=== PATIENT | female | born 1990 | race American Indian/Alaskan Native ===

== ENCOUNTER 2021-01-17 14:41 | Inpatient (IN) | payer BC, OTHER ==
--- NOTE | 2021-01-17 14:53 | Emergency Department Report ---
HPI - General Time Seen by Provider: 01/17/21 14:44 - HPI HPI: 30-year-old female with history of asthma with 1 prior intubation in the past presents via EMS for acute asthma exacerbation. According to the EMS report, the patient was at [facility] when she suddenly began to feel short of breath. Her shortness of breath progressed despite using her albuterol inhaler. When EMS arrived, the patient was noted to be in respiratory distress. In route to the hospital she was given 7.5 of albuterol 125 mg of Solu-Medrol and 2 g of magnesium. The patient was noted to be tachycardic. Details of the HPI are limited due to the patient's current clinical condition, although she did verify to me that prior to feeling short of breath at [facility] today she did not experience any fever/chills, cough, chest pain, shortness of breath, abdominal pain, nausea/vomiting, or any other symptoms. She does say that after her shortness of breath started she began to experience tightness in her chest. ED Past Medical Hx - Past Medical History Hx Asthma: Yes - Family History Family history: asthma - Social History Smoking Status: Never Smoker Substance Use Type: None - Medications Home Medications: Home Medications Medication Instructions Recorded Confirmed Last Taken Type Desloratadine [Clarinex] 5 mg PO DAILY #14 tablet 05/26/13 Unknown Rx Sulfamethoxazole/Trimethoprim 1 each PO BID #20 tablet 05/26/13 Unknown Rx [Bactrim DS] Albuterol *Only Ed* [Proventil 2.5 mg IH Q4H PRN #1 pack 04/27/15 Unknown Rx 0.5% NEBS] Albuterol Mdi (or & Nicu Only) 2 puff IH Q6H PRN #1 unit 04/27/15 Unknown Rx [ProAir HFA Inhaler] Montelukast [Singulair] 10 mg PO QPM #14 tablet 04/27/15 Unknown Rx predniSONE [Deltasone] 50 mg PO QDAY #5 tab 04/27/15 Unknown Rx ED Review of Systems ROS: Stated complaint: ASTHMA ATTACK/CHEST PAIN Other details as noted in HPI Constitutional: denies: chills, fever Eyes: denies: vision change ENT: denies: throat pain, congestion Respiratory: shortness of breath, wheezing. denies: cough Cardiovascular: chest pain. denies: palpitations Gastrointestinal: denies: abdominal pain, nausea, vomiting Genitourinary: denies: dysuria Musculoskeletal: denies: myalgia Neurological: denies: headache, weakness, numbness Physical Exam - Physical Exam Vital Signs: Vital Signs 01/17/21 01/17/21 01/17/21 14:58 15:40 15:48 Pulse Rate 113 H 100 H Respiratory 60 H 30 H 30 H Rate Blood Pressure 134/56 Blood Pressure 108/57 [Left] O2 Sat by Pulse 100 100 100 Oximetry General: GENERAL: In moderate to severe respiratory distress HEENT: Normocephalic. No obvious signs of trauma. Moist mucous membranes. EYES: Extraocular movements are intact. NECK: Supple. Trachea is midline. LUNGS: In respiratory distress with intercostal and other accessory muscle use. Lung auscultation reveals globally diminished breath sounds with faint end expiratory wheezing throughout. No crackles or rhonchi appreciated. HEART/CARDIOVASCULAR: Tachycardic but with normal rhythm. No murmurs or rubs. VASCULAR: 2+ peripheral pulses. ABDOMEN: Abdomen is soft and nondistended.There is no significant tenderness, guarding or rebound. SKIN: Skin is warm and dry NEURO: Patient is awake and alert. No focal deficits. MUSCULOSKELETAL: No obvious deformities. No significant tenderness. ED Medical Decision Making - Lab Data Result diagrams: 01/17/21 15:05 01/17/21 15:05 Laboratory Results - last 24 hr 01/17/21 01/17/21 01/17/21 15:05 15:05 15:05 WBC 7.1 RBC 3.92 Hgb 12.1 Hct 36.3 MCV 93 MCH 31 MCHC 33 RDW 13.6 Plt Count 183 Lymph % (Auto) 35.7 H [place] % (Auto) 5.7 Eos % (Auto) 1.3 Baso % (Auto) 0.2 Lymph # (Auto) 2.5 [place] # (Auto) 0.4 Eos # (Auto) 0.1 Baso # (Auto) 0.0 Seg Neutrophils % 57.1 Seg Neutrophils # 4.0 Sodium 137 Potassium 3.2 L Chloride 104.1 Carbon Dioxide 18 L Anion Gap 18 BUN 11 Creatinine 0.7 Estimated GFR > 60 BUN/Creatinine Ratio 16 Glucose 105 H Calcium 8.3 L Magnesium 2.50 H Total Bilirubin 0.30 Direct Bilirubin < 0.2 Indirect Bilirubin 0.1 AST 13 ALT 10 Alkaline Phosphatase 66 Troponin T < 0.010 NT-Pro-B Natriuret Pep 29.92 Total Protein 7.1 Albumin 4.1 Albumin/Globulin Ratio 1.4 HCG, Qual Negative - EKG Data -: EKG Interpreted by Me - EKG Data Normal sinus rhythm. Normal axis. Normal intervals. No ectopy. No sig nificant ST segment or T wave abnormalities 01/17/21 17:44 - Radiology Data CHEST 1 VIEW INDICATION: sob. COMPARISON: None. FINDINGS: Support devices: None. Heart: Normal. Lungs/Pleura: No acute pulmonary or pleural findings. IMPRESSION: 1. No acute findings. Signer Name: Cosmo Myles MD Signed: 01/17/2021 3:07 PM Workstation Name: [id number] - Medical Decision Making 30-year-old female with history of asthma with a history of one single intubation brought in by EMS for sudden respiratory distress typical of the patient's acute asthma exacerbations. The patient was at [facility] when she suddenly began to feel short of breath. She was in respiratory distress when EMS arrived and displayed diffuse wheezing. She was given 7.5 mg of albuterol, 125 mg of Solu-Medrol, and 2 g of magnesium in route. On initial assessment the patient is noted to be in respiratory distress with intercostal and accessory muscle use. Lung auscultation reveals globally decreased air movement throughout with faint end expiratory wheezing most consistent with acute asthma exacerbation. Given the severity of the patient's disease and her current presentation, we will send a full set of labs, EKG, and chest x-ray. The patient will be placed on BiPAP with continuous albuterol/ipratropium. We will give 1 additional gram of magnesium. We will obtain an ABG and continue to monitor her response to therapy closely and consider further interventions if needed On repeat assessment 3:45 PM, the patient 's respiratory rate is improved to the 20s. She reports that she feels much better. On repeat assessment again at 4:15, she remains symptomatically improved on BiPAP. ABG reveals appropriatre oxygenation and no evidence of hypercarbia., Labs reveal no leukocytosis. Potassium level is 3.2. Will administer 40 mEq potassiuym chloride. CXR is clear. Will admit to ICU for further management. Critical Care Time: Yes (35) Critical care time in (mins) excluding proc time.: 35 Critical care attestation.: If time is entered above; I have spent that time in minutes in the direct care of this critically ill patient, excluding procedure time. Critical care time was spent in the evaluation/assessment/management of life threatening respiratory failure requiring BiPAP and monitoring of ABGs ED Disposition Clinical Impression: Hypokalemia Asthma exacerbation Qualifiers: Asthma severity: severe Asthma persistence: unspecified Qualified Code(s): J45.901 - Unspecified asthma with (acute) exacerbation Respiratory failure with hypoxia Qualifiers: Chronicity: acute Qualified Code(s): J96.01 - Acute respiratory failure with hypoxia Disposition: DC-09 OP ADMIT IP TO THIS HOSP Is pt being admited?: Yes Condition: Critical
[2021-01-17] MEDS ORDERED: IPRATROPIUM 0.02% NEBU 2.5 ML IH ONE ×2 (14:55→14:56)
[2021-01-17] MEDS ORDERED: ALBUTEROL 2.5 MG/3 ML NEBU IH ONE ×2 (14:55→14:56)
[2021-01-17] MEDS ORDERED: MAGNESIUM SULFATE 1 GM in SODIUM CHLORIDE 0.9% 50 ML IV ONE (15:00)
[2021-01-17] MEDS ORDERED: MAGNESIUM SULFATE 2 GM/50 ML BAG IV ONE (15:10)
[2021-01-17 15:30] LABS: Basophils % (Auto) 0.2 % (0.0-1.8); Eosinophils # (Auto) 0.1 K/mm3 (0.0-0.4); Eosinophils % (Auto) 1.3 % (0.0-4.3); Hematocrit 36.3 % (30.3-42.9); Hemoglobin 12.1 gm/dl (10.1-14.3); Lymphocytes # (Auto) 2.5 K/mm3 (1.2-5.4); Lymphocytes % (Auto) 35.7 % (13.4-35.0); Mean Corpuscular HGB Conc 33 % (30-34); Mean Corpuscular Volume 93 fl (79-97); Monocytes # (Auto) 0.4 K/mm3 (0.0-0.8); Monocytes % (Auto) 5.7 % (0.0-7.3); Platelet Count 183 K/mm3 (140-440); Red Blood Count 3.92 M/mm3 (3.65-5.03); Red Cell Distribution Width 13.6 % (13.2-15.2)
[2021-01-17 15:47] LABS: Alanine Aminotransferase 10 units/L (7-56); Albumin 4.1 g/dL (3.9-5); Blood Urea Nitrogen 11 mg/dL (7-17); Calcium 8.3 mg/dL (8.4-10.2); Hemolysis Index 6
[2021-01-17 16:03] LABS: BUN/Creatinine Ratio 16; Bilirubin,Direct < 0.2 mg/dL (0-0.2)
--- NOTE | 2021-01-17 16:11 | XRay Report ---
CHEST 1 VIEW INDICATION: sob. COMPARISON: None. FINDINGS: Support devices: None. Heart: Normal. Lungs/Pleura: No acute pulmonary or pleural findings. IMPRESSION: 1. No acute findings. Signer Name: Cosmo Myles MD Signed: 01/17/2021 4:07 PM Workstation Name: [id number]
[2021-01-17] MEDS ORDERED: POTASSIUM CHLORIDE ER 20 MEQ TAB PO ONE ×3 (16:15→22:35)
--- NOTE | 2021-01-17 21:43 | History and Physical Report ---
History of Present Illness Date of examination: 01/17/21 Date of admission: 01/17/21 21:19 Chief complaint: Severe shortness of breath since morning while at [employer] associated with wheezing History of present illness: 30-year-old female with history of asthma and 1 prior intubation comes in for severe shortness of breath since morning. Patient called EMS and came by EMS. Patient was [place] [employer] when she suddenly began to feel shortness of breath and wheezing. In spite of using the albuterol inhaler there is no relief. Patient is not on Singulair for prevention of asthma. Patient was intubated once in the past. No fever or chills. No exposure to Covid. No anosmia or loss of taste. Cough present. Mucoid sputum present. Also tightness in the chest. - Past Medical History --Asthma: Yes - Past surgical history none - Family History Family history: asthma - Social History Smoking Status: Never Smoker Substance Use Type: None Review of Systems ROS: Constitutional severe respiratory distress HEENT no sore throat no post nasal drip no diplopia Neck no neck stiffness no lymph gland enlargement Chest and lungs severe respiratory distress and wheezing CVS no chest pain no diaphoresis no palpitations GI no nausea no vomiting no diarrhea Genitourinary system no dysuria no flank pain Musculoskeletal system no muscle pains no joint pains [employer] no syncope no seizures Skin no rash no itching Psychiatric no depression no homicidal or suicidal tendencies Hematologic no lymphedema or bruising Endocrine no polydipsia no polyuria no cold intolerance no heat intolerance Medications and Allergies Allergies Allergy/AdvReac Type Severity Reaction Status Date / Time No Known Allergies Allergy Verified 04/27/15 06:36 Home Medications Medication Instructions Recorded Confirmed Last Taken Type Desloratadine [Clarinex] 5 mg PO DAILY #14 tablet 05/26/13 Unknown Rx Sulfamethoxazole/Trimethoprim 1 each PO BID #20 tablet 05/26/13 Unknown Rx [Bactrim DS] Albuterol *Only Ed* [Proventil 2.5 mg IH Q4H PRN #1 pack 04/27/15 Unknown Rx 0.5% NEBS] Albuterol Mdi (or & Nicu Only) 2 puff IH Q6H PRN #1 unit 04/27/15 Unknown Rx [ProAir HFA Inhaler] Montelukast [Singulair] 10 mg PO QPM #14 tablet 04/27/15 Unknown Rx predniSONE [Deltasone] 50 mg PO QDAY #5 tab 04/27/15 Unknown Rx Exam - Physical Exam Narrative exam: Patient on BiPAP - Constitutional Vitals: Temp Pulse Resp BP Pulse Ox 87 60 H 124/59 99 01/17/21 21:15 01/17/21 19:52 01/17/21 21:15 01/17/21 21:15 General appearance: Present: severe distress, well-nourished - EENT Eyes: Present: PERRL ENT: hearing intact, clear oral mucosa - Neck Neck: Present: supple, normal ROM - Respiratory Respiratory effort: normal Respiratory: bilateral: diminished, rhonchi, wheezing - Cardiovascular Heart rate: 78 Rhythm: regular Heart Sounds: Present: S1 & S2. Absent: rub, click - Extremities Extremities: no ischemia, pulses intact, pulses symmetrical, No edema Peripheral Pulses: within normal limits - Abdominal General gastrointestinal: Present: soft, non-tender, non-distended, normal bowel sounds Female genitourinary: Present: normal - Integumentary Integumentary: Present: clear, warm, dry - Musculoskeletal Musculoskeletal: gait normal, strength equal bilaterally - Psychiatric Psychiatric: appropriate mood/affect, intact judgment & insight - Neurologic Neurologic: CNII-XII intact, moves all extremities - Allied Health Allied health notes reviewed: nursing, case management HEART Score - HEART Score Troponin: Troponin T < 0.010 ng/mL (0.00-0.029) 01/17/21 15:05 Results - Labs CBC & Chem 7: 01/17/21 15:05 01/17/21 15:05 Labs: Laboratory Last Values WBC 7.1 K/mm3 (4.5-11.0) 01/17/21 15:05 RBC 3.92 M/mm3 (3.65-5.03) 01/17/21 15:05 Hgb 12.1 gm/dl (10.1-14.3) 01/17/21 15:05 Hct 36.3 % (30.3-42.9) 01/17/21 15:05 MCV 93 fl (79-97) 01/17/21 15:05 MCH 31 pg (28-32) 01/17/21 15:05 MCHC 33 % (30-34) 01/17/21 15:05 RDW 13.6 % (13.2-15.2) 01/17/21 15:05 Plt Count 183 K/mm3 (140-440) 01/17/21 15:05 Lymph % (Auto) 35.7 % (13.4-35.0) H 01/17/21 15:05 [place] % (Auto) 5.7 % (0.0-7.3) 01/17/21 15:05 Eos % (Auto) 1.3 % (0.0-4.3) 01/17/21 15:05 Baso % (Auto) 0.2 % (0.0-1.8) 01/17/21 15:05 Lymph # (Auto) 2.5 K/mm3 (1.2-5.4) 01/17/21 15:05 [place] # (Auto) 0.4 K/mm3 (0.0-0.8) 01/17/21 15:05 Eos # (Auto) 0.1 K/mm3 (0.0-0.4) 01/17/21 15:05 Baso # (Auto) 0.0 K/mm3 (0.0-0.1) 01/17/21 15:05 Seg Neutrophils % 57.1 % (40.0-70.0) 01/17/21 15:05 Seg Neutrophils # 4.0 K/mm3 (1.8-7.7) 01/17/21 15:05 ABG pH 7.399 (7.320-7.450) 01/17/21 15:56 POC ABG pCO2 27.2 mmHg (32.0-48.0) L 01/17/21 15:56 POC ABG pO2 124.6 mmHg (83-108) H 01/17/21 15:56 POC ABG HCO3 16.4 01/17/21 15:56 ABG O2 Saturation 98.2 (0-100) 01/17/21 15:56 POC ABG Base Excess -7.0 01/17/21 15:56 ABG Hemoglobin 12.0 (12.0-17.5) 01/17/21 15:56 ABG Oxyhemoglobin 97.8 (94-98) 01/17/21 15:56 ABG Methemoglobin 0.3 (0.0-1.5) 01/17/21 15:56 ABG Sodium 137.4 mmol/L (136.0-145.0) 01/17/21 15:56 ABG Potassium 3.2 mmol/L (3.40-4.50) L 01/17/21 15:56 ABG Chloride 108.0 mmol/L (98-107) H 01/17/21 15:56 ABG Glucose 114 mg/dL (65-95) H 01/17/21 15:56 Carboxyhemoglobin 0.1 (0.5-1.5) L 01/17/21 15:56 FiO2 % 30 01/17/21 15:56 Sodium 137 mmol/L (137-145) 01/17/21 15:05 Potassium 3.2 mmol/L (3.6-5.0) L 01/17/21 15:05 Chloride 104.1 mmol/L (98-107) 01/17/21 15:05 Carbon Dioxide 18 mmol/L (22-30) L 01/17/21 15:05 Anion Gap 18 mmol/L 01/17/21 15:05 BUN 11 mg/dL (7-17) 01/17/21 15:05 Creatinine 0.7 mg/dL (0.6-1.2) 01/17/21 15:05 Estimated GFR > 60 ml/min 01/17/21 15:05 BUN/Creatinine Ratio 16 % 01/17/21 15:05 Glucose 105 mg/dL (65-100) H 01/17/21 15:05 Calcium 8.3 mg/dL (8.4-10.2) L 01/17/21 15:05 Magnesium 2.50 mg/dL (1.7-2.3) H 01/17/21 15:05 Total Bilirubin 0.30 mg/dL (0.1-1.2) 01/17/21 15:05 Direct Bilirubin < 0.2 mg/dL (0-0.2) 01/17/21 15:05 Indirect Bilirubin 0.1 mg/dL 01/17/21 15:05 AST 13 units/L (5-40) 01/17/21 15:05 ALT 10 units/L (7-56) 01/17/21 15:05 Alkaline Phosphatase 66 units/L (35-129) 01/17/21 15:05 Troponin T < 0.010 ng/mL (0.00-0.029) 01/17/21 15:05 NT-Pro-B Natriuret Pep 29.92 pg/mL (0-450) 01/17/21 15:05 Total Protein 7.1 g/dL (6.3-8.2) 01/17/21 15:05 Albumin 4.1 g/dL (3.9-5) 01/17/21 15:05 Albumin/Globulin Ratio 1.4 % 01/17/21 15:05 HCG, Qual Negative (Negative) 01/17/21 15:05 Arterial Blood Glucose 114 mg/dL (65-95) H 01/17/21 15:56 - Imaging and Cardiology Chest x-ray: report reviewed Assessment and Plan Advance Directives: Yes (Full code) VTE prophylaxis?: Chemical Plan of care discussed with patient/family: Yes - Patient Problems (1) Acute respiratory failure with hypoxia Current Visit: Yes Status: Acute Plan to address problem: Patient on BiPAP Intubated necessary Patient started on IV Solu-Medrol, IV Levaquin and duo nebs [id number] and as needed along with Pulmicort. (2) Asthma exacerbation Current Visit: Yes Status: Acute Qualifiers: Asthma severity: severe Asthma persistence: unspecified Qualified Code(s): J45.901 - Unspecified asthma with (acute) exacerbation Plan to address problem: Patient started on IV Solu-Medrol, IV Levaquin, duo nebs [id number] and as needed and BiPAP. Intubation if necessary. Patient has a history of intubations in the past x1. (3) Hypokalemia Current Visit: Yes Status: Acute Plan to address problem: Supplemented (4) DVT prophylaxis Current Visit: Yes Status: Acute Plan to address problem: On heparin and GI prophylaxis
[2021-01-17] MEDS ORDERED: METOCLOPRAMIDE 10 MG/2 ML INJ IV PRN (21:55)
[2021-01-17] MEDS ORDERED: MORPHINE 2 MG/1 ML INJ IV PRN (21:55)
[2021-01-17] MEDS ORDERED: ALBUTEROL 2.5 MG/3 ML NEBU IH PRN (21:55)
[2021-01-17] MEDS ORDERED: ONDANSETRON 4 MG/2 ML INJ IV PRN (21:55)
[2021-01-17] MEDS ORDERED: SODIUM CHLORIDE 0.9% 1000 ML 1,000 ML IV SCH (22:00)
[2021-01-17] MEDS: methylPREDNISolone Sod Succinate 125 MG/2 ML INJ IV SCH (23:00)
[2021-01-17] MEDS: ALBUTEROL 2.5 MG/3 ML NEBU IH SCH (23:00)
[2021-01-17] MEDS: FAMOTIDINE 20 MG/2 ML INJ IV SCH (23:00)
[2021-01-17] MEDS: HEPARIN 5,000 UNIT/1 ML VIAL SUB-Q SCH (23:02)
[2021-01-18] MEDS: BUDESONIDE 0.5 MG/2 ML NEBU IH SCH ×3 (01:49→21:52)
[2021-01-18] MEDS: ALBUTEROL 2.5 MG/3 ML NEBU IH SCH ×4 (02:36→21:52)
[2021-01-18] MEDS: methylPREDNISolone Sod Succinate 125 MG/2 ML INJ IV SCH ×3 (06:32→21:36)
[2021-01-18 07:26] LABS: Basophils % (Auto) 0.1 % (0.0-1.8); Hematocrit 35.6 % (30.3-42.9); Lymphocytes # (Auto) 1.6 K/mm3 (1.2-5.4); Lymphocytes % (Auto) 13.3 % (13.4-35.0); Mean Corpuscular HGB Conc 34 % (30-34); Mean Corpuscular Volume 92 fl (79-97); Monocytes # (Auto) 0.4 K/mm3 (0.0-0.8); Platelet Count 198 K/mm3 (140-440); Red Blood Count 3.86 M/mm3 (3.65-5.03); Red Cell Distribution Width 13.8 % (13.2-15.2)
[2021-01-18 07:58] LABS: Alanine Aminotransferase 10 units/L (7-56); Albumin 4.1 g/dL (3.9-5); Blood Urea Nitrogen 11 mg/dL (7-17); Calcium 8.4 mg/dL (8.4-10.2); Hemolysis Index 6
[2021-01-18 08:01] LABS: BUN/Creatinine Ratio 18
[2021-01-18] MEDS: HEPARIN 5,000 UNIT/1 ML VIAL SUB-Q SCH ×2 (10:01→21:36)
[2021-01-18] MEDS: FAMOTIDINE 20 MG/2 ML INJ IV SCH ×2 (10:01→21:36)
--- NOTE | 2021-01-18 10:40 | Electrocardiograph Report ---
[facility] Test Date: 2021-01-17 Test Time: 17:29:53 Pat Name: GERRY GEE Department: Room: A267 1 Gender: F Talkback Host: MALOU VILLARREALB: 1990 Requested By: YUNI PORTILLO Order Number: [id number] Reading MD: Reginald Bonilla Measurements Intervals [place] Rate: 93 P: 49 NH: 182 QRS: 39 QRSD: 90 T: 8 QT: 372 QTc: 462 Interpretive Statements Sinus rhythm Probable left atrial enlargement No previous ECG available for comparison Electronically Signed On 01-18-2021 10:39:33 EDT by Reginald Bonilla
--- NOTE | 2021-01-18 11:49 | Consultation ---
History of Present Illness Consult date: 01/18/21 Requesting physician: ANETTE HOWARD Reason for consult: asthma Medications and Allergies Allergies Allergy/AdvReac Type Severity Reaction Status Date / Time No Known Allergies Allergy Verified 04/27/15 06:36 Home Medications Medication Instructions Recorded Confirmed Last Taken Type Albuterol Mdi (or & Nicu Only) 2 puff IH Q6H PRN #1 unit 04/27/15 01/18/21 U nknown Rx [ProAir HFA Inhaler] Active Meds: Active Medications Acetaminophen (Acetaminophen 325 Mg Tab) 650 mg PO Q4H PRN PRN Reason: Pain MILD(1-3)/Fever >100.5/GRANADO Albuterol (Albuterol 2.5 Mg/3 Ml Nebu) 2.5 mg IH Q3H PRN PRN Reason: Shortness Of Breath Albuterol (Albuterol 2.5 Mg/3 Ml Nebu) 2.5 mg IH Q6HRT [facility] Last Admin: 01/18/21 08:23 Dose: 2.5 mg Documented by: Budesonide (Budesonide 0.5 Mg/2 Ml Nebu) 0.5 mg IH Q12HRT [facility] Last Admin: 01/18/21 08:23 Dose: 0.5 mg Documented by: Famotidine (Famotidine 20 Mg/2 Ml Inj) 20 mg IV BID [facility] Last Admin: 01/18/21 10:01 Dose: 20 mg Documented by: Heparin Sodium (Porcine) (Heparin 5,000 Unit/1 Ml Vial) 5,000 unit SUB-Q Q12HR [facility] Last Admin: 01/18/21 10:01 Dose: 5,000 unit Documented by: Levofloxacin/Dextrose (Levaquin 750mg/150ml) 750 mg in 150 mls @ 100 mls/hr IV Q24H [facility]; Protocol Stop: 01/21/21 23:29 Last Admin: 01/17/21 23:00 Dose: 100 mls/hr Documented by: Methylprednisolone Sodium Succinate (Methylprednisolone Sod Succinate 125 Mg/2 Ml Inj) 125 mg IV Q8HR [facility] Last Admin: 01/18/21 06:32 Dose: 125 mg Documented by: Metoclopramide HCl (Metoclopramide 10 Mg/2 Ml Inj) 10 mg IV Q6H PRN PRN Reason: Nausea And Vomiting Morphine Sulfate (Morphine 2 Mg/1 Ml Inj) 2 mg IV Q4H PRN PRN Reason: Pain, Moderate (4-6) Ondansetron HCl (Ondansetron 4 Mg/2 Ml Inj) 4 mg IV Q3H PRN PRN Reason: Nausea And Vomiting Oxycodone/Acetaminophen (Oxycodone /Acetaminophen 5-325mg Tab) 1 tab PO Q6H PRN PRN Reason: Pain, Moderate (4-6) Sodium Chloride (Sodium Chloride 0.9% 10 Ml Flush Syringe) 10 ml IV BID [facility] Last Admin: 01/18/21 10:01 Dose: 10 ml Documented by: Sodium Chloride (Sodium Chloride 0.9% 10 Ml Flush Syringe) 10 ml IV PRN PRN PRN Reason: LINE FLUSH Physical Examination Vital signs: Vital Signs Pulse Resp BP Pulse Ox 113 H 60 H 134/56 100 01/17/21 14:58 01/17/21 14:58 01/17/21 14:58 01/17/21 14:58 Results - Laboratory Findings CBC and BMP: 01/18/21 06:59 01/18/21 06:59 ABG ABG pH 7.399 (7.320-7.450) 01/17/21 15:56 POC ABG pCO2 27.2 mmHg (32.0-48.0) L 01/17/21 15:56 POC ABG pO2 124.6 mmHg (83-108) H 01/17/21 15:56 POC ABG HCO3 16.4 01/17/21 15:56 ABG O2 Saturation 98.2 (0-100) 01/17/21 15:56 Abnormal lab findings: Abnormal Labs 01/17/21 01/17/21 01/17/21 15:05 15:05 15:56 WBC Lymph % (Auto) 35.7 H Seg Neutrophils % Seg Neutrophils # POC ABG pCO2 27.2 L POC ABG pO2 124.6 H ABG Potassium 3.2 L ABG Chloride 108.0 H ABG Glucose 114 H Carboxyhemoglobin 0.1 L Sodium Potassium 3.2 L Carbon Dioxide 18 L Glucose 105 H Calcium 8.3 L Magnesium 2.50 H Arterial Blood Glucose 114 H 01/18/21 01/18/21 06:59 06:59 WBC 12.3 H Lymph % (Auto) 13.3 L Seg Neutrophils % 83.6 H Seg Neutrophils # 10.3 H POC ABG pCO2 POC ABG pO2 ABG Potassium ABG Chloride ABG Glucose Carboxyhemoglobin Sodium 134 L Potassium 5.1 H D Carbon Dioxide Glucose 136 H Calcium Magnesium Arterial Blood Glucose
[2021-01-18] MEDS ORDERED: MONTELUKAST 10 MG TAB PO SCH ×2 (14:00→22:00)
--- NOTE | 2021-01-18 14:53 | Progress Note ---
Assessment and Plan Assessment and plan: 30-year-old female with history of asthma and 1 prior intubation comes in for severe shortness of breath since morning. Patient called EMS and came by EMS. Patient was at [employer] when she suddenly began to feel shortness of breath and wheezing. In spite of using the albuterol inhaler there is no relief. Patient is not on Singulair for prevention of asthma. Patient was intubated once in the past. No fever or chills. No exposure to Covid. No anosmia or loss of taste. Cough present. Mucoid sputum present. Also tightness in the chest. 01/18: Continue supportive care, continue steroids, Pulmonary following. Monitor and replace electrolytes. (1) Acute respiratory failure with hypoxia Current Visit: Yes Status: Acute Plan to address problem: Patient on BiPAP Intubated necessary Patient started on IV Solu-Medrol, IV Levaquin and duo nebs [id number] and as needed along with Pulmicort. (2) Asthma exacerbation Current Visit: Yes Status: Acute Qualifiers: Asthma severity: severe Asthma persistence: unspecified Qualified Code(s): J45.901 - Unspecified asthma with (acute) exacerbation Plan to address problem: Patient started on IV Solu-Medrol, IV Levaquin, duo nebs [id number] and as needed and BiPAP. Intubation if necessary. Patient has a history of intubations in the past x1. (3) Hypokalemia Current Visit: Yes Status: Acute Plan to address problem: Supplemented (4) DVT prophylaxis Current Visit: Yes Status: Acute Plan to address problem: On heparin and GI prophylaxis History Interval history: Patient seen and examined this morning still short of breath and on BiPAP. Hospitalist Physical - Physical exam Narrative exam: VITAL SIGNS: Reviewed. GENERAL: The patient appears normally developed, morbidly obese in acute respiratory distress on BiPAP vital signs as documented. HEAD: No signs of head trauma. EYES: Pupils are equal. Extraocular motions intact. EARS: Hearing grossly intact. MOUTH: Oropharynx is normal. NECK: No adenopathy, no JVD. CHEST: Chest with wheezing breath sounds bilaterally. No rales, or rhonchi. CARDIAC: Regular rate and rhythm. S1 and S2, without murmurs, gallops, or rubs. VASCULAR: No Edema. Peripheral pulses normal and equal in all extremities. ABDOMEN: Soft, non tender and non distended. No rebound or guarding, and no masses palpated. Bowel Sounds normal. MUSCULOSKELETAL: Good range of motion of all major joints. Extremities without clubbing, cyanosis or edema. NEUROLOGIC EXAM: Alert and oriented x 3 No focal sensory or strength deficits. Speech limited to 2 word sentences. Follows commands. PSYCHIATRIC: Mood anxious. SKIN: detail exam as documented in skin assessment - Constitutional Vitals: Temp Pulse Resp BP Pulse Ox 98.2 F 69 20 133/73 98 01/18/21 08:00 01/18/21 14:35 01/18/21 14:35 01/18/21 08:25 01/18/21 08:25 General appearance: Present: severe distress, well-nourished HEART Score - HEART Score Troponin: Troponin T < 0.010 ng/mL (0.00-0.029) 01/17/21 15:05 Results - Labs CBC & Chem 7: 01/18/21 06:59 01/18/21 06:59 Labs: Laboratory Last Values WBC 12.3 K/mm3 (4.5-11.0) H 01/18/21 06:59 RBC 3.86 M/mm3 (3.65-5.03) 01/18/21 06:59 Hgb 12.0 gm/dl (10.1-14.3) 01/18/21 06:59 Hct 35.6 % (30.3-42.9) 01/18/21 06:59 MCV 92 fl (79-97) 01/18/21 06:59 MCH 31 pg (28-32) 01/18/21 06:59 MCHC 34 % (30-34) 01/18/21 06:59 RDW 13.8 % (13.2-15.2) 01/18/21 06:59 Plt Count 198 K/mm3 (140-440) 01/18/21 06:59 Lymph % (Auto) 13.3 % (13.4-35.0) L 01/18/21 06:59 Kay % (Auto) 3.0 % (0.0-7.3) 01/18/21 06:59 Eos % (Auto) 0.0 % (0.0-4.3) 01/18/21 06:59 Baso % (Auto) 0.1 % (0.0-1.8) 01/18/21 06:59 Lymph # (Auto) 1.6 K/mm3 (1.2-5.4) 01/18/21 06:59 Kay # (Auto) 0.4 K/mm3 (0.0-0.8) 01/18/21 06:59 Eos # (Auto) 0.0 K/mm3 (0.0-0.4) 01/18/21 06:59 Baso # (Auto) 0.0 K/mm3 (0.0-0.1) 06 06:59 Seg Neutrophils % 83.6 % (40.0-70.0) H 01/18/21 06:59 Seg Neutrophils # 10.3 K/mm3 (1.8-7.7) H 01/18/21 06:59 ABG pH 7.399 (7.320-7.450) 01/17/21 15:56 POC ABG pCO2 27.2 mmHg (32.0-48.0) L 01/17/21 15:56 POC ABG pO2 124.6 mmHg (83-108) H 01/17/21 15:56 POC ABG HCO3 16.4 01/17/21 15:56 ABG O2 Saturation 98.2 (0-100) 01/17/21 15:56 POC ABG Base Excess -7.0 01/17/21 15:56 ABG Hemoglobin 12.0 (12.0-17.5) 01/17/21 15:56 ABG Oxyhemoglobin 97.8 (94-98) 01/17/21 15:56 ABG Methemoglobin 0.3 (0.0-1.5) 01/17/21 15:56 ABG Sodium 137.4 mmol/L (136.0-145.0) 01/17/21 15:56 ABG Potassium 3.2 mmol/L (3.40-4.50) L 01/17/21 15:56 ABG Chloride 108.0 mmol/L (98-107) H 01/17/21 15:56 ABG Glucose 114 mg/dL (65-95) H 01/17/21 15:56 Carboxyhemoglobin 0.1 (0.5-1.5) L 01/17/21 15:56 FiO2 % 30 01/17/21 15:56 Sodium 134 mmol/L (137-145) L 01/18/21 06:59 Potassium 5.1 mmol/L (3.6-5.0) H D 01/18/21 06:59 Chloride 103.7 mmol/L (98-107) 01/18/21 06:59 Carbon Dioxide 22 mmol/L (22-30) 01/18/21 06:59 Anion Gap 13 mmol/L 01/18/21 06:59 BUN 11 mg/dL (7-17) 01/18/21 06:59 Creatinine 0.6 mg/dL (0.6-1.2) 01/18/21 06:59 Estimated GFR > 60 ml/min 01/18/21 06:59 BUN/Creatinine Ratio 18 % 01/18/21 06:59 Glucose 136 mg/dL (65-100) H 01/18/21 06:59 Hemoglobin A1c 5.4 % (4-6) 01/18/21 06:59 Calcium 8.4 mg/dL (8.4-10.2) 01/18/21 06:59 Magnesium 2.50 mg/dL (1.7-2.3) H 01/17/21 15:05 Total Bilirubin 0.20 mg/dL (0.1-1.2) 01/18/21 06:59 Direct Bilirubin < 0.2 mg/dL (0-0.2) 01/17/21 15:05 Indirect Bilirubin 0.1 mg/dL 01/17/21 15:05 AST 12 units/L (5-40) 01/18/21 06:59 ALT 10 units/L (7-56) 01/18/21 06:59 Alkaline Phosphatase 62 units/L (35-129) 01/18/21 06:59 Troponin T < 0.010 ng/mL (0.00-0.029) 01/17/21 15:05 NT-Pro-B Natriuret Pep 29.92 pg/mL (0-450) 01/17/21 15:05 Total Protein 7.2 g/dL (6.3-8.2) 01/18/21 06:59 Albumin 4.1 g/dL (3.9-5) 01/18/21 06:59 Albumin/Globulin Ratio 1.3 % 01/18/21 06:59 HCG, Qual Negative (Negative) 01/17/21 15:05 Arterial Blood Glucose 114 mg/dL (65-95) H 01/17/21 15:56 Gutierrez/IV: Voiding Method Bedside Commode Active Medications - Current Medications Current Medications: Generic Name Dose Route Start Last Admin Trade Name Freq PRN Reason Stop Dose Admin Acetaminophen 650 mg 01/17/21 21:55 Acetaminophen 325 Mg Tab PO Q4H PRN Pain MILD(1-3)/Fever >100.5/GRANADO Albuterol 2.5 mg 01/17/21 21:55 Albuterol 2.5 Mg/3 Ml Nebu IH Q3H PRN Shortness Of Breath Albuterol 2.5 mg 01/17/21 22:00 01/18/21 14:35 Albuterol 2.5 Mg/3 Ml Nebu IH 2.5 mg Q6HRT MAYO Administration Budesonide 0.5 mg 01/17/21 22:15 01/18/21 08:23 Budesonide 0.5 Mg/2 Ml Nebu IH 0.5 mg Q12HRT MAYO Administration Famotidine 20 mg 01/17/21 22:00 01/18/21 10:01 Famotidine 20 Mg/2 Ml Inj IV 20 mg BID MAYO Administration Heparin Sodium (Porcine) 5,000 unit 01/17/21 22:15 01/18/21 10:01 Heparin 5,000 Unit/1 Ml Vial SUB-Q 5,000 unit Q12HR MAYO Administration Levofloxacin/Dextrose 750 mg in 150 mls @ 100 mls/hr 01/17/21 22:00 01/17/21 23:00 Levaquin 750mg/150ml IV 01/21/21 23:29 100 mls/hr Q24H MAYO Administration Protocol Methylprednisolone Sodium Succinate 125 mg 01/17/21 22:00 01/18/21 06:32 Methylprednisolone Sod Succinate 125 Mg/2 Ml Inj IV 125 mg Q8HR MAYO Administration Metoclopramide HCl 10 mg 01/17/21 21:55 Metoclopramide 10 Mg/2 Ml Inj IV Q6H PRN Nausea And Vomiting Montelukast Sodium 10 mg 01/18/21 14:00 Montelukast 10 Mg Tab PO QHS MAYO Morphine Sulfate 2 mg 01/17/21 21:55 Morphine 2 Mg/1 Ml Inj IV Q4H PRN Pain, Moderate (4-6) Ondansetron HCl 4 mg 01/17/21 21:55 Ondansetron 4 Mg/2 Ml Inj IV Q3H PRN Nausea And Vomiting Oxycodone/Acetaminophen 1 tab 01/17/21 21:55 Oxycodone /Acetaminophen 5-325mg Tab PO Q6H PRN Pain, Moderate (4-6) Sodium Chloride 10 ml 01/17/21 22:00 01/18/21 10:01 Sodium Chloride 0.9% 10 Ml Flush Syringe IV 10 ml BID MAYO Administration Sodium Chloride 10 ml 01/17/21 21:55 Sodium Chloride 0.9% 10 Ml Flush Syringe IV PRN PRN LINE FLUSH
[2021-01-18] MEDS: ACETAMINOPHEN 325 MG TAB PO PRN ×2 (15:20→22:03)
[2021-01-18] MEDS: oxyCODONE /ACETAMINOPHEN 5-325MG TAB PO PRN (22:02)
[2021-01-19] MEDS: ALBUTEROL 2.5 MG/3 ML NEBU IH SCH ×3 (02:51→13:08)
[2021-01-19] MEDS: ACETAMINOPHEN 325 MG TAB PO PRN ×2 (05:46→11:45)
[2021-01-19] MEDS: oxyCODONE /ACETAMINOPHEN 5-325MG TAB PO PRN ×2 (05:47→15:35)
[2021-01-19] MEDS: methylPREDNISolone Sod Succinate 125 MG/2 ML INJ IV SCH ×2 (05:48→15:00)
[2021-01-19 07:56] LABS: Blood Urea Nitrogen 15 mg/dL (7-17); Calcium 8.6 mg/dL (8.4-10.2); Hemolysis Index 1
[2021-01-19] MEDS: BUDESONIDE 0.5 MG/2 ML NEBU IH SCH (08:01)
[2021-01-19 08:07] LABS: BUN/Creatinine Ratio 21
[2021-01-19] MEDS ORDERED: FAMOTIDINE 20 MG TAB PO SCH (10:00)
[2021-01-19] MEDS: HEPARIN 5,000 UNIT/1 ML VIAL SUB-Q SCH (10:09)
--- NOTE | 2021-01-19 11:18 | Discharge Summary ---
Providers - Providers Date of Admission: 01/17/21 21:19 Attending physician: CHI GOEL MD 01/17/21 21:55 Consult to Physician [CONS] Routine Comment: Consulting Provider: SHAUNA PRADO Physician Instructions: Reason For Exam: Acute respiratory failure and asthma exacerbation Primary care physician: [employer] Hospitalization Reason for admission: shortness of breath Condition: Stable Hospital course: 30-year-old female with history of asthma and 1 prior intubation comes in for severe shortness of breath since morning. Patient called EMS and came by EMS. Patient was at [employer] when she suddenly began to feel shortness of breath and wheezing. In spite of using the albuterol inhaler there is no relief. Patient is not on Singulair for prevention of asthma. Patient was intubated once in the past. No fever or chills. No exposure to Covid. No anosmia or loss of taste. Cough present. Mucoid sputum present. Also tightness in the chest. 01/18: Continue supportive care, continue steroids, Pulmonary following. Monitor and replace electrolytes. 01/19: Clincally stable and ready for discharge, counselling provided (1) Acute respiratory failure with hypoxia Current Visit: Yes Status: Acute Plan to address problem: Patient on BiPAP Intubated necessary Patient started on IV Solu-Medrol, IV Levaquin and duo nebs [id number] and as needed along with Pulmicort. (2) Asthma exacerbation Current Visit: Yes Status: Acute Qualifiers: Asthma severity: severe Asthma persistence: unspecified Qualified Code(s): J45.901 - Unspecified asthma with (acute) exacerbation Plan to address problem: Patient started on IV Solu-Medrol, IV Levaquin, duo nebs [id number] and as needed and BiPAP. Intubation if necessary. Patient has a history of intubations in the past x1. (3) Hypokalemia Current Visit: Yes Status: Acute Plan to address problem: Supplemented Disposition: - TO HOME OR SELFCARE Final Discharge Diagnosis (Prints w/discharge instructions): asthma exacerbation Time spent for discharge: 35 mins Core Measure Documentation - Palliative Care Palliative Care/ Comfort Measures: Not Applicable - Core Measures Any of the following diagnoses?: none Exam - Physical Exam Narrative exam: VITAL SIGNS: Reviewed. GENERAL: The patient appears normally developed, morbidly obese in acute respiratory distress on BiPAP vital signs as documented. HEAD: No signs of head trauma. EYES: Pupils are equal. Extraocular motions intact. EARS: Hearing grossly intact. MOUTH: Oropharynx is normal. NECK: No adenopathy, no JVD. CHEST: Chest with clear breath sounds bilaterally. No rales, or rhonchi. CARDIAC: Regular rate and rhythm. S1 and S2, without murmurs, gallops, or r ubs. VASCULAR: No Edema. Peripheral pulses normal and equal in all extremities. ABDOMEN: Soft, non tender and non distended. No rebound or guarding, and no masses palpated. Bowel Sounds normal. MUSCULOSKELETAL: Good range of motion of all major joints. Extremities without clubbing, cyanosis or edema. NEUROLOGIC EXAM: Alert and oriented x 3 No focal sensory or strength deficits. Speech limited to 2 word sentences. Follows commands. PSYCHIATRIC: Mood anxious. SKIN: detail exam as documented in skin assessment - Constitutional Vitals: Temp Pulse Resp BP Pulse Ox 98.6 F 87 22 102/49 95 01/19/21 08:00 01/19/21 11:01 01/19/21 11:01 01/19/21 11:01 01/19/21 11:01 Plan Activity: advance as tolerated, fall precautions Diet: low fat Special Instructions: record daily weights, record daily BP diary Follow up with: PRIMARY CARE, [Primary Care Provider] - 3-5 Days SHAUNA PRADO MD [Staff Physician] - 7 Days Prescriptions: Montelukast [Singulair] 10 mg PO QHS #30 tablet Fluticasone Propion/Salmeterol [Airduo Digihaler 232-14 Mcg] 1 each IH BID #1 aer.pw.bas levoFLOXacin [Levaquin TAB] 750 mg PO Q24H #3 tablet Prednisone [predniSONE 10 mg (6-Day Pack, 21 Tabs)] 10 mg PO .TAPER #1 tab.ds.pk Albuterol Mdi (or & Nicu Only) [ProAir HFA Inhaler] 2 puff IH Q6H PRN #1 unit PRN Reason: Shortness Of Breath
[2021-01-19 16:07] VITALS: BP 118/67
[2021-01-19] MEDS ORDERED: levoFLOXacin 750 MG TAB PO SCH (22:00)
== END 2021-01-19 16:00 | disposition home or self-care (01) | DRG 189 ==
LOC: ED 14:41 → IMCU 21:19
PROVIDERS: ADMIT Internal Medicine; ATTEND Internal Medicine
PROC: 4A033R1 Measurement of Arterial Saturation, Peripheral, Percutaneous Approach (ICD-10-PCS; principal; 2021-01-17)
PROC: 5A09357 Assistance with Respiratory Ventilation, Less than 24 Consecutive Hours, Continuous Positive Airway Pressure (ICD-10-PCS; 2021-01-17)
DX: J96.01 Acute respiratory failure with hypoxia (principal); J45.901 Unspecified asthma with (acute) exacerbation; E87.6 Hypokalemia; Z20.822 Contact with and (suspected) exposure to COVID-19; Z82.5 Family history of asthma and other chronic lower respiratory diseases
CPT/HCPCS: 36415; 71045; 80048; 80053; 80076; 82805; 83036; 83735; 83880; 84484; 84703; 85025; 93005; 94640; 94644; G0378; J1644; J1956; J2930; J3475; U0003